=== PATIENT | female | born 1960 | race Caucasian/White ===

== ENCOUNTER 2017-08-04 10:40 | Emergency (ER) | payer BC ==
[~2017-08-04] VITALS: Ht 170.2 cm; Wt 83.5 kg
[~2017-08-04 10:40] MED LIST: CYCL-331 PO; FLUO10CA13 PO; GEMF600T3 PO; LEVO50TA5 PO; TRAM50TA PO
[2017-08-04 10:43] VITALS: BP 139/91
--- NOTE | 2017-08-04 11:10 | PHYS DOC ---
Past History Past Medical History: Arthritis, Hypothyroid, Other Past Surgical History: No Surgical History Alcohol Use: None Drug Use: None Adult General Chief Complaint Chief Complaint: BACK PAIN OR INJURY HPI HPI Patient is a 57 year old F who presents with left-sided back pain over the past 2-3 weeks. [place] states that she had an injury all trying to separate her dogs from fighting. Since that time her pain has been localized to the left side of her back. Her pain is worse with movement and palpation and improved with rest. She has no other associated symptoms. She has no other exacerbating or alleviating factors. Review of Systems Review of Systems Constitutional: Denies fever or chills [] Eyes: Denies change in visual acuity, redness, or eye pain [] HENT: Denies nasal congestion or sore throat [] Respiratory: Denies cough or shortness of breath [] Cardiovascular: No additional information not addressed in HPI [] GI: Denies abdominal pain, nausea, vomiting, bloody stools or diarrhea [] : Denies dysuria or hematuria [] Musculoskeletal: Negative except history of present illness Integument: Denies rash or skin lesions [] Neurologic: Denies headache, focal weakness or sensory changes [] Endocrine: Denies polyuria or polydipsia [] All other systems were reviewed and found to be within normal limits, except as documented in this note. Family History Family History No pertinent family medical history reported Current Medications Current Medications Current medications reviewed Allergies Allergies Allergies Coded Allergies Type Severity Reaction Last Updated Verified acetaminophen Allergy Unknown NAUSEA, VOMITING 09/09/14 No hydrocodone Allergy Unknown NAUSEA, VOMITING 09/09/14 No Physical Exam Physical Exam Constitutional: Well developed, well nourished, no acute distress, non-toxic appearance. [] HENT: Normocephalic, atraumatic, bilateral external ears normal, oropharynx moist, no oral exudates, nose normal. [] Eyes: PERRLA, EOMI, conjunctiva normal, no discharge. [] Neck: Normal range of motion, no tenderness, supple, no stridor. [] Cardiovascular:Heart rate regular rhythm, no murmur [] Lungs & Thorax: Bilateral breath sounds clear to auscultation [] Abdomen: Bowel sounds normal, soft, no tenderness, no masses, no pulsatile masses. [] Skin: Warm, dry, no erythema, no rash. [] Back: Left-sided thoracic and lumbar paraspinal muscle spasm Extremities: No tenderness, no cyanosis, no clubbing, ROM intact, no edema. [] Neurologic: Alert and oriented X 3, normal motor function, normal sensory function, no focal deficits noted. [] Psychologic: Affect normal, judgement normal, mood normal. [] Current Patient Data Vital Signs Vital Signs Date Time Temp Pulse Resp B/P (MAP) Pulse Ox O2 Delivery O2 Flow Rate FiO2 08/04/17 10:43 97.9 88 16 96 Room Air EKG EKG [] Radiology/Procedures Radiology/Procedures [] Course & Med Decision Making Course & Med Decision Making Pertinent Labs and Imaging studies reviewed. (See chart for details) [] Dragon Disclaimer Dragon Disclaimer This electronic medical record was generated, in whole or in part, using a voice recognition dictation system. Departure Departure: Impression: Primary Impression: Muscle spasm of back Disposition: HOME, SELF-CARE Condition: STABLE Referrals: LOREN SORIA (PCP) Patient Instructions: Muscle Strain Additional Instructions: Hyacinth was seen in the ED for back pain. No emergency medical condition was found on history and physical exam. Her symptoms are consistent with a muscle spasm. She was advised to stretch and strength. She was advised to consider message therapy and/or physical therapy. She was also advised to follow up with her primary care doctor as needed for further management. FRANKLIN FRAUSTO MD Aug 04, 2017 11:10
== END 2017-08-04 11:20 | disposition home or self-care (01) ==
LOC: ER 10:40
DX: M62.830 Muscle spasm of back (principal); E03.9 Hypothyroidism, unspecified; M19.90 Unspecified osteoarthritis, unspecified site; Z88.5 Allergy status to narcotic agent; Z88.6 Allergy status to analgesic agent
CPT/HCPCS: 99281

== ENCOUNTER → 2020-04-06 | Outpatient (CLI) | payer BC ==
[~2020-04-06] MED LIST changes: -GEMF600T3 PO; +GEMF600T8 PO
--- NOTE | 2020-04-06 17:25 | RAD ---
LUMBAR SPINE 2-3V History: Low back pain, radiculopathy Comparison: May 26, 2015 Findings: 3 views of the lumbar spine are submitted. There is facet degenerative change greater inferiorly of the lumbar spine. Lumbar vertebral body stature is overall preserved. There is mild levoscoliosis centered upon the mid to superior lumbar spine. Small calcification in the right upper quadrant of the abdomen is of uncertain AP location. There are small left renal calculi, also questionably of the superior right kidney. There is mild degenerative disc disease greatest L3-4 and L1-L2. There is multilevel mild spondylosis greatest L1-L2 through L3-4. Impression: 1. There is multilevel mild degenerative disc disease and spondylosis greatest of mid to superior lumbar levels. There is facet degenerative change greater inferiorly of the lumbar spine. There is mild lumbar levoscoliosis. 2. Small calcification in the right upper quadrant of the abdomen is of uncertain AP location. There are small left renal calculi, also possibly of the superior right kidney. Electronically signed by: Cornelius Becerril MD (04/06/2020 5:22 PM) [id number]
== END | disposition home or self-care (01) ==
LOC: DXRAD 16:33
PROVIDERS: ATTEND Chiropractor Radiology
DX: M47.26 Other spondylosis with radiculopathy, lumbar region (principal); M51.36 Other intervertebral disc degeneration, lumbar region; M41.86 Other forms of scoliosis, lumbar region; N20.0 Calculus of kidney
CPT/HCPCS: 72100

== ENCOUNTER 2020-07-07 10:08 | Inpatient (IN) | payer BC ==
[~2020-07-07] VITALS: Ht 170.2 cm; Wt 90.3 kg
[2020-07-07] MEDS ORDERED: ACETAMINOPHEN 325 MG TABLET PO ONE ×2 (10:31→11:00)
--- NOTE | 2020-07-07 10:36 | PHYS DOC ---
Past History Past Medical History: Arthritis, Hypothyroid, Other Past Surgical History: No Surgical History Alcohol Use: None Drug Use: None Adult General Chief Complaint Chief Complaint: NAUSEA/VOMITING/DIARRHEA HPI HPI Patient is a 60-year-old female who presents with known COVID-19 infection. She was diagnosed with this 5 days ago. Symptom onset was 7 days ago. She comes here with continued fever, full body aches, feelings of palpitations, and what p rompted her visit today was nausea and x3 episodes of nonbloody nonbilious emesis. She lives at home with her who has also been self quarantining given her recent diagnosis, he is currently asymptomatic. Patient has been taking ibuprofen and/or Tylenol intermittently for aches and pains, she admits to taking x1 left over [place] 5 for severe body aches 3 days ago. Reports she took x1 Excedrin 2.5 hours prior to arrival. Review of Systems Review of Systems Fourteen body systems of review of systems have been reviewed. See HPI for pertinent positives and negative responses, other clarke all other systems are negative, non-pertinent or non-contributory Current Medications Current Medications Current Medications Medications (Trade) Dose Ordered Sig/Patricia Start Time Stop Time Status Last Admin Dose Admin Acetaminophen (Tylenol) 325 mg STK-MED ONCE 07/07/20 10:31 07/07/20 10:32 DC Allergies Allergies Allergies Coded Allergies Type Severity Reaction Last Updated Verified acetaminophen Allergy Unknown NAUSEA, VOMITING 09/09/14 No hydrocodone Allergy Unknown NAUSEA, VOMITING 09/09/14 No Physical Exam Physical Exam Constitutional: Well developed, well nourished, no acute distress, appears ill HENT: Normocephalic, atraumatic, bilateral external ears normal, oropharynx moist, post-nasal drip present, no oral exudates, nose normal. [] Eyes: PERRLA, EOMI, conjunctiva normal, no discharge. [] Neck: Normal range of motion, no tenderness, supple, no stridor. [] Cardiovascular:Heart rate regular rhythm, no murmur [] Lungs & Thorax: bilateral rhonchi and crackles, no obvious resp distress but increased work of breathing with accessory muscle use noted Abdomen: Bowel sounds normal, soft, no tenderness, no masses, no pulsatile masses. [] Skin: Warm, diaphoretic, no erythema, no rash. [] Back: No tenderness, no CVA tenderness. [] Extremities: No tenderness, no cyanosis, no clubbing, ROM intact, no edema. [] Neurologic: Alert and oriented X 3, normal motor function, normal sensory function, no focal deficits noted. [] Psychologic: Affect normal, judgement normal, anxious mood Current Patient Data Vital Signs Vital Signs Date Time Temp Pulse Resp B/P (MAP) Pulse Ox O2 Delivery O2 Flow Rate FiO2 07/07/20 20:00 Room Air 07/07/20 19:18 97.1 82 23 132/78 (96) 95 07/07/20 14:55 2.0 Lab Results Laboratory Tests Test 07/07/20 10:35 White Blood Count 3.5 x10^3/uL (4.0-11.0) Red Blood Count 4.30 x10^6/uL (3.50-5.40) Hemoglobin 12.9 g/dL (12.0-15.5) Hematocrit 39.0 % (36.0-47.0) Mean Corpuscular Volume 91 fL (79-100) Mean Corpuscular Hemoglobin 30 pg (25-35) Mean Corpuscular Hemoglobin Concent 33 g/dL (31-37) Red Cell Distribution Width 13.1 % (11.5-14.5) Platelet Count 155 x10^3/uL (140-400) Neutrophils (%) (Auto) 74 % (31-73) Lymphocytes (%) (Auto) 19 % (24-48) Monocytes (%) (Auto) 6 % (0-9) Eosinophils (%) (Auto) 0 % (0-3) Basophils (%) (Auto) 0 % (0-3) Neutrophils # (Auto) 2.6 x10^3uL (1.8-7.7) Lymphocytes # (Auto) 0.7 x10^3/uL (1.0-4.8) Monocytes # (Auto) 0.2 x10^3/uL (0.0-1.1) Eosinophils # (Auto) 0.0 x10^3/uL (0.0-0.7) Basophils # (Auto) 0.0 x10^3/uL (0.0-0.2) Prothrombin Time 10.0 SEC (9.4-11.4) Prothromb Time International Ratio 1.0 (0.9-1.1) Activated Partial Thromboplast Time 31 SEC (23-33) Sodium Level 134 mmol/L (136-145) Potassium Level 3.9 mmol/L (3.5-5.1) Chloride Level 100 mmol/L (98-107) Carbon Dioxide Level 24 mmol/L (21-32) Anion Gap 10 (6-14) Blood Urea Nitrogen 13 mg/dL (7-20) Creatinine 0.9 mg/dL (0.6-1.0) Estimated GFR (Cockcroft-Gault) 64.1 BUN/Creatinine Ratio 14 (6-20) Glucose Level 122 mg/dL (70-99) Lactic Acid Level 1.0 mmol/L (0.4-2.0) Calcium Level 8.3 mg/dL (8.5-10.1) Ferritin 340 ng/mL (8-252) Total Bilirubin 0.3 mg/dL (0.2-1.0) Aspartate Amino Transf (AST/SGOT) 39 U/L (15-37) Alanine Aminotransferase (ALT/SGPT) 44 U/L (14-59) Alkaline Phosphatase 110 U/L (46-116) Lactate Dehydrogenase 374 U/L (81-234) Troponin I Quantitative < 0.017 ng/mL (0-0.055) C-Reactive Protein 75.8 mg/L (0-3.3) Total Protein 7.4 g/dL (6.4-8.2) Albumin 3.2 g/dL (3.4-5.0) Albumin/Globulin Ratio 0.8 (1.0-1.7) Procalcitonin < 0.10 ng/mL (0.00-0.10) EKG EKG EKG ordered and interpreted by myself at 1058 hrs. as sinus rhythm at 95 bpm, unremarkable intervals, no axis deviation, no STEMI Radiology/Procedures Radiology/Procedures PROCEDURE: CHEST AP ONLY Single view of the chest. 07/07/2020 10:32 AM Indication: Reason: COVID +, cough / Spl. Instructions: / History: Comparison: None Findings: Patchy infiltrates in the left midlung and right lung base. There is no pneumothorax or effusion. Heart size is top normal. No acute osseous changes are identified. IMPRESSION: Left midlung and right basilar infiltrates. Electronically signed by: Ronnell Orellana MD (07/07/2020 10:55 AM) [id number] Heart Score HEART Score for Chest Pain: HEART Score for Chest Pain Response (Comments) Value History Slighlty/Non-Suspicious 0 ECG Normal 0 Age >45 - < 65 1 Risk Factors 1 or 2 Risk Factors 1 Troponin < Normal Limit 0 Total 2 Risk Factors: Risk Factors: DM, Current or recent (<one month) smoker, HTN, HLP, family history of CAD, obesity. Risk Scores: Risk Factors: DM, Current or recent (<one month) smoker, HTN, HLP, family history of CAD, obesity. Course & Med Decision Making Course & Med Decision Making Pertinent Labs and Imaging studies reviewed. (See chart for details) Discussed known diagnosis of COVID-19 likely causing presenting infiltrates on CXR and hypoxia requiring supplemental O2 Intervention provided while in ED wasn't sufficient enough to improve patient's condition enough to be discharged home safely. I called Dr. Aguilar and case discussed, he agreed to admission for further medical care I updated patient on plan of care and she was amenable, all questions and concerns addressed prior to ED departure Dragon Disclaimer Dragon Disclaimer This electronic medical record was generated, in whole or in part, using a voice recognition dictation system. Departure Departure: Impression: Primary Impression: COVID-19 Additional Impressions: Pneumonia Acute respiratory distress Disposition: 09 ADMITTED INPT THIS HOSP Admitting Physician: Collin Aguilar Condition: STABLE Referrals: LOREN SORIA (PCP) Problem Qualifiers SHEYLA RAZA DO Jul 07, 2020 10:36
[2020-07-07] MEDS ORDERED: ONDANSETRON PF 4 MG/2 ML VIAL. ONE (10:41)
[2020-07-07] MEDS ORDERED: IV NORMAL SALINE 1,000ML 1,000 ML IV ONE (10:45)
--- NOTE | 2020-07-07 10:59 | RAD ---
Single view of the chest. 07/07/2020 10:32 AM Indication: Reason: COVID +, cough / Spl. Instructions: / History: Comparison: None Findings: Patchy infiltrates in the left midlung and right lung base. There is no pneumothorax or effusion. Heart size is top normal. No acute osseous changes are identified. IMPRESSION: Left midlung and right basilar infiltrates. Electronically signed by: Ronnell Orellana MD (07/07/2020 10:55 AM) [id number]
[2020-07-07] MEDS ORDERED: ONDANSETRON PF 4 MG/2 ML VIAL. IM ONE (11:00)
[2020-07-07 11:13] LABS: BASO % 0 % (0-3); EOS % 0 % (0-3); HEMOGLOBIN 12.9 g/dL (12.0-15.5); LYMPH # 0.7 x10^3/uL (1.0-4.8); LYMPH % 19 % (24-48); MEAN CORPUSCULAR HEMOGLOBIN 30 pg (25-35); MEAN CORPUSCULAR HGB CONC 33 g/dL (31-37); MEAN CORPUSCULAR VOLUME 91 fL (79-100); MONO # 0.2 x10^3/uL (0.0-1.1); MONO % 6 % (0-9); NEUT # 2.6 x10^3uL (1.8-7.7); NEUT % 74 % (31-73); PLATELET COUNT 155 x10^3/uL (140-400); RED CELL DISTRIBUTION WIDTH 13.1 % (11.5-14.5); WHITE BLOOD COUNT 3.5 x10^3/uL (4.0-11.0)
[2020-07-07] MEDS ORDERED: ONDANSETRON PF 4 MG/2 ML VIAL. IV ONE (11:15)
[2020-07-07 11:35] LABS: CALCIUM 8.3 mg/dL (8.5-10.1); CREATININE 0.9 mg/dL (0.6-1.0); GFR 64.1; POTASSIUM 3.9 mmol/L (3.5-5.1)
[2020-07-07 11:39] LABS: ALBUMIN 3.2 g/dL (3.4-5.0); ALBUMIN/GLOBULIN RATIO 0.8 (1.0-1.7); C REACTIVE PROTEIN 75.8 mg/L (0-3.3); TOTAL BILIRUBIN 0.3 mg/dL (0.2-1.0); TOTAL PROTEIN 7.4 g/dL (6.4-8.2)
[2020-07-07] MEDS ORDERED: IV NORMAL SALINE 250ML 250 ML ONE (12:16)
[2020-07-07] MEDS ORDERED: AZITHROMYCIN 500 MG VIAL. IV ONE (12:17)
[2020-07-07] MEDS ORDERED: IV NORMAL SALINE 100ML 100 ML ONE (12:17)
[2020-07-07] MEDS ORDERED: DEXAMETHASONE 4 MG TABLET PO ONE (12:30)
[2020-07-07] MEDS ORDERED: AZITHROMYCIN 500 MG in IV NORMAL SALINE 250ML 250 ML IV ONE (13:00)
--- NOTE | 2020-07-07 14:24 | HP ---
ADMIT DATE: 07/07/2020 ATTENDING PHYSICIAN: Dr. Moore. CHIEF COMPLAINT: Weakness and myalgias. HISTORY OF PRESENT ILLNESS: The patient is a 60-year-old female diagnosed with coronavirus infection 5 days ago. Symptom onset was 7 days ago. She has had continuing low-grade fever, full body aches, feelings of palpitation, nausea, 3 episodes of nonbloody, nonbilious emesis. She lives at home with her who has been self-quarantining. She took intermittent ibuprofen, Tylenol, still quite symptomatic. Chest x-ray today showed patchy linear infiltrates in the right lower lobe and the left lingular region. Her saturation is adequate. She is hemodynamically stable currently. She appears mildly dehydrated. She is admitted then with symptomatic treatment of COVID-related pneumonia and myalgias. PAST MEDICAL HISTORY: Significant for degenerative arthritis, hypothyroidism and chronic pain syndrome. CURRENT MEDICATIONS: Include Flexeril, fluoxetine, Lopid, Synthroid, Neurontin, and Ultram. ALLERGIES: She has allergies to HYDROCODONE, exact reactions unclear. SOCIAL HISTORY: She is a nonsmoker, nondrinker. FAMILY HISTORY: Father of unspecified causes because the biologic father was unknown to her. Mom was 84, she of Alzheimer's dementia. REVIEW OF SYSTEMS: Significant for the myalgias, low-grade fevers, nausea, not feeling well, achy, generalized weakness. No cough. All other systems reviewed and turned to be negative. PHYSICAL EXAMINATION: GENERAL: When I saw her, this is a pleasant female. INITIAL VITAL SIGNS: Showed a blood pressure of 120/72, pulse is 81 and regular, temperature 98.3 degrees Fahrenheit, oxygen saturation 93% on 1 liter nasal cannula. HEENT: Head is without trauma. Pupils are reactive. Sclerae nonicteric. Oropharynx clear. NECK: Supple, no bruits. LUNGS: Fairly good breath sounds with minimum rhonchi. CARDIOVASCULAR: Showed regular heart tones. No gallops. ABDOMEN: Soft, scaphoid, nontender. EXTREMITIES: Showed no cyanosis or edema. NEUROLOGIC: Focally intact. Speech is fluent. SKIN: Warm and dry. PERTINENT LABORATORY STUDIES: Hemoglobin 12.9 g/dL, white count 3500. Electrolytes within normal range. Nonfasting blood sugar 122, creatinine 0.9. Lactic acid was 1.0. Troponin was normal. Chest x-ray showed left mid lung and right basilar infiltrates. ASSESSMENT: 1. COVID-19 coronavirus pneumonia bilaterally. 2. Myalgias. 3. Mild dehydration. 4. History of chronic pain syndrome. PLAN: 1. Admit to the inpatient unit. 2. IV hydration. 3. Pepcid. 4. Empiric Lovenox. 5. Empiric zinc. 6. Empiric Decadron. 7. Pain and nausea relief. SILVIA MOORE MD DR: RAMOS/sophie JOB#: [id number] / [id number]
[2020-07-07 19:18] VITALS: BP 132/78
[2020-07-07] MEDS ORDERED: OMEP40CA45 PO (19:58)
[2020-07-07] MEDS ORDERED: IBUP800T19 PO (19:58)
[2020-07-07] MEDS ORDERED: GABA600T7 PO (19:58)
[2020-07-07] MEDS ORDERED: CETI10TA16 PO (19:58)
[2020-07-07] MEDS ORDERED: LEVO88TA4 PO (19:58)
[2020-07-07] MEDS ORDERED: ACET500T68 PO (19:58)
[2020-07-07] MEDS ORDERED: MONT10TA80 PO (19:58)
[2020-07-07] MEDS ORDERED: DULO20CA50 PO (19:58)
[2020-07-07] MEDS ORDERED: MELA3TAB4 PO (19:58)
[2020-07-07] MEDS ORDERED: LEVO100T5 PO (19:58)
[2020-07-07] MEDS: IV NORMAL SALINE 1,000ML 1,000 ML IV SCH (20:57)
[2020-07-07] MEDS: ENOXAPARIN 40 MG/0.4 ML SYRINGE. SQ SCH (20:57)
[2020-07-07 23:00] VITALS: BP 117/64
[2020-07-08] MEDS: ONDANSETRON PF 4 MG/2 ML VIAL. IVP PRN (03:38)
[2020-07-08] MEDS: ACETAMINOPHEN 500 MG TABLET PO PRN ×3 (03:39→19:21)
[2020-07-08] MEDS: IV NORMAL SALINE 1,000ML 1,000 ML IV SCH ×2 (06:38→15:15)
[2020-07-08] MEDS: FAMOTIDINE 20 MG/2 ML VIAL IVP SCH (06:43)
[2020-07-08 07:00] VITALS: BP 124/72
[2020-07-08] MEDS: ZINC SULFATE 220 MG CAPSULE. PO SCH (08:03)
[2020-07-08] MEDS: DEXAMETHASONE 4 MG TABLET PO SCH (08:03)
[2020-07-08 11:00] VITALS: BP 132/80
[2020-07-08] MEDS ORDERED: CALCIUM CARBONATE 500 MG TAB.CHEW PO PRN (18:45)
--- NOTE | 2020-07-08 19:45 | EKG ---
[address] [address] Test Date: 2020-07-07 Test Time: 10:53:57 Pat Name: SURYA CARTY Department: Room: [place] [address] Gender: F Resident Services Director: : [id number] Requested By: SHEYLA RAZA Order Number: [id number] Reading MD: Rajinder Chou Measurements Intervals [place] Rate: 95 P: 56 MT: 164 QRS: 39 QRSD: 68 T: 68 QT: 348 QTc: 441 Interpretive Statements SINUS RHYTHM NORMAL ECG RI6.02 No previous ECG available for comparison Electronically Signed On 07-09-2020 15:44:11 SECURITY MANAGEMENT SPECIALIST by Rajinder Chou
[2020-07-08 20:00] VITALS: BP 144/81
[2020-07-08] MEDS ORDERED: MELATONIN 3 MG TABLET PO PRN ×2 (20:00→21:20)
[2020-07-08] MEDS: ENOXAPARIN 40 MG/0.4 ML SYRINGE. SQ SCH (21:36)
[2020-07-09] MEDS: IV NORMAL SALINE 1,000ML 1,000 ML IV SCH ×3 (01:15→21:15)
[2020-07-09 06:00] VITALS: BP 133/78
[2020-07-09] MEDS: FAMOTIDINE 20 MG/2 ML VIAL IVP SCH (06:19)
--- NOTE | 2020-07-09 07:28 | PN ---
DATE: 07/08/2020 ATTENDING PHYSICIAN: Dr. Moore. SUBJECTIVE: Feeling better, not as tired. She still has a dry nonproductive cough. Oxygen saturation 91% on room air. OBJECTIVE FINDINGS: VITAL SIGNS: She is afebrile, temperature 98.8 degrees Fahrenheit, blood pressure 117/64, pulse 87 and regular, oxygen saturation 91% on room air. HEENT: Head is without trauma. Pupils are reactive. Sclerae nonicteric. Oropharynx clear. NECK: Supple, no bruits. LUNGS: Good breath sounds. CARDIOVASCULAR: Showed regular heart tones. No gallops. Peripheral pulses are palpable and full. ABDOMEN: Soft, scaphoid, nontender, no organomegaly. Bowel sounds are hypoactive. EXTREMITIES: Showed no cyanosis. NEUROLOGIC: Focally intact. Speech is fluent. SKIN: Warm and dry. ASSESSMENT: 1. A 60-year-old female with acute COVID [place] virus pneumonia. 2. Myalgias improved. 3. Dehydration, rehydrated. 4. History of chronic pain syndrome 5. Hypothyroidism, on replacement. PLAN: 1. We can discontinue the IV hydration. She is eating and drinking well. 2. Continue empiric Lovenox. 3. Pepcid, Zinc and Decadron. 4. Pain and nausea, controlled. 5. Monitor oxygen saturation. If she remains stable, she can be discharged to quarantine at home. SILVIA MOORE MD DR: RAMOS/sophie JOB#: [id number] / [id number]
[2020-07-09 08:39] VITALS: BP 126/71
[2020-07-09] MEDS: ZINC SULFATE 220 MG CAPSULE. PO SCH (08:39)
[2020-07-09] MEDS: DEXAMETHASONE 4 MG TABLET PO SCH (08:40)
[2020-07-09] MEDS: ACETAMINOPHEN 500 MG TABLET PO PRN ×2 (08:40→14:32)
[2020-07-09] MEDS: ONDANSETRON PF 4 MG/2 ML VIAL. IVP PRN (08:40)
[2020-07-09 11:07] VITALS: BP 122/70
--- NOTE | 2020-07-09 13:04 | RAD ---
PORTABLE CHEST 1V 07/09/2020 10:39 AM INDICATION: Shortness of air COMPARISON: 07/07/2020 TECHNIQUE: Portable frontal view of the chest is provided. FINDINGS: The cardiomediastinal silhouette is within normal limits. There is persistent interstitial and alveolar airspace disease in the left upper lobe. There are no significant pleural effusions. There is no pulmonary vascular congestion. No pneumothorax. No suspicious osseous abnormality. IMPRESSION: There is persistent patchy interstitial and alveolar spaces in the left upper lobe which may represent pneumonia in appropriate setting. Recommend follow-up to resolution. Electronically signed by: Nimisha Sofia MD (07/09/2020 1:01 PM) KONRAD
[2020-07-09 14:54] VITALS: BP 114/76
[2020-07-09] MEDS: IPRATROPIUM/ALBUTEROL 20/100mcg/INH INHALER. INH SCH ×2 (16:00→20:45)
[2020-07-09 20:06] VITALS: BP 110/72
[2020-07-09] MEDS: ENOXAPARIN 40 MG/0.4 ML SYRINGE. SQ SCH (20:45)
[2020-07-09 22:31] VITALS: BP 120/68
--- NOTE | 2020-07-10 02:41 | PN ---
DATE: 07/09/2020 ATTENDING PHYSICIAN: Dr. Moore. SUBJECTIVE: The patient is still weak. She still has low-grade fevers. Cough is better. She is clammy. No nausea or vomiting. OBJECTIVE FINDINGS: VITAL SIGNS: Temperature 100.1 degrees Fahrenheit, blood pressure 126/71, pulse is 95, oxygen saturation 93% on 2 liters nasal cannula. HEENT: Head is without trauma. Pupils are reactive. Sclerae nonicteric. Oropharynx is clear. NECK: Supple. LUNGS: Minimal rhonchi at bases. CARDIOVASCULAR: Showed regular heart tones. No gallops. ABDOMEN: Soft. EXTREMITIES: Without edema. SKIN: A little bit clammy. LABORATORY DATA: Followup chest x-ray has been ordered. ASSESSMENT: 1. A 60-year-old female with COVID-19 virus infection. 2. Bibasilar infiltrates. 3. Gastroenteritis, resolved. 4. Dehydration, rehydrated. 5. Chronic pain syndrome. PLAN: 1. Follow up chest x-ray. 2. Continue current therapy. 3. Diet as tolerated. 4. Supplemental oxygen. 5. We will an inhaler, metered dose inhaler. SILVIA MOORE MD DR: RAMOS/sophie JOB#: [id number] / [id number]
[2020-07-10] MEDS: ACETAMINOPHEN 500 MG TABLET PO PRN ×2 (05:41→18:29)
[2020-07-10] MEDS: FAMOTIDINE 20 MG/2 ML VIAL IVP SCH ×2 (05:44→08:11)
[2020-07-10 06:48] VITALS: BP 123/71
[2020-07-10 08:00] VITALS: BP 132/79
[2020-07-10] MEDS: IPRATROPIUM/ALBUTEROL 20/100mcg/INH INHALER. INH SCH ×4 (08:00→20:00)
[2020-07-10] MEDS: ZINC SULFATE 220 MG CAPSULE. PO SCH (08:10)
[2020-07-10] MEDS: DEXAMETHASONE 4 MG TABLET PO SCH (08:10)
[2020-07-10] MEDS: ENOXAPARIN 40 MG/0.4 ML SYRINGE. SQ SCH (08:13)
[2020-07-10] MEDS ORDERED: DULO30CA2 PO (10:31)
[2020-07-10] MEDS: DULoxetine HCL 30 MG CAPSULE.DR PO SCH (12:08)
[2020-07-10 12:28] VITALS: BP 126/85
[2020-07-10 16:08] VITALS: BP 132/80
[2020-07-10 20:00] VITALS: BP 134/81
--- NOTE | 2020-07-10 23:24 | PN ---
DATE: 07/10/2020 ATTENDING PHYSICIAN: Dr. Moore. SUBJECTIVE: The patient is doing a little better. Her fevers are resolved. Cough is improved. She is not nearly as tired. She feels depressed that she is stuck in the hospital. She has been on Cymbalta. We restarted this. OBJECTIVE FINDINGS: VITAL SIGNS: Oxygen saturations are 93% on 2 liters nasal cannula, blood pressure 123/70, pulse 80 and regular. She is afebrile. HEENT: Head is without trauma. Pupils are reactive. Sclerae nonicteric. Oropharynx clear. NECK: Supple, no bruits identified. LUNGS: Minimal rhonchi at bases. CARDIOVASCULAR: Showed regular heart tones. No gallops. Peripheral pulses are palpable and full. ABDOMEN: Soft, nontender, no organomegaly. EXTREMITIES: Without edema. NEUROLOGIC: Focally intact. Speech is fluent. SKIN: Warm and dry. ASSESSMENT: 1. A 60-year-old female with COVID-19 infection. 2. Bilateral viral pneumonia. 3. Gastroenteritis, resolved. 4. Dehydration, rehydrated. 5. Chronic pain syndrome. PLAN: 1. We are trying to wean down her supplemental oxygen to room air. 2. Continue current regimen. 3. Tentative discharge planning for tomorrow. 4. We have added a spacer for her metered dose inhaler. SILVIA MOORE MD DR: RAMOS/sophie JOB#: [id number] / [id number]
[2020-07-11 05:51] VITALS: BP 131/83
[2020-07-11] MEDS: IPRATROPIUM/ALBUTEROL 20/100mcg/INH INHALER. INH SCH (08:00)
[2020-07-11] MEDS: DULoxetine HCL 30 MG CAPSULE.DR PO SCH (08:16)
[2020-07-11] MEDS: DEXAMETHASONE 4 MG TABLET PO SCH (08:16)
[2020-07-11] MEDS: ZINC SULFATE 220 MG CAPSULE. PO SCH (08:17)
[2020-07-11] MEDS: FAMOTIDINE 20 MG/2 ML VIAL IVP SCH (08:33)
[2020-07-11 10:55] VITALS: BP 124/65
--- NOTE | 2020-07-11 11:52 | DS ---
DATE OF DISCHARGE: ATTENDING PHYSICIAN: Dr. Moore. FINAL DISCHARGE DIAGNOSES: 1. COVID-19 coronavirus pneumonia. 2. Myalgias, improved. 3. Dehydration, rehydrated. 4. Chronic pain syndrome. 5. Hypothyroidism, on replacement. HISTORY AND PHYSICAL: This pleasant 60-year-old female is admitted to the ED with flu-like symptoms, body aches, palpitations, nausea and 3 episodes of emesis. She was diagnosed positive for coronavirus. She had an infiltrate in the left lingular region. PHYSICAL EXAMINATION: Please see the dictated note. PERTINENT LABORATORY AND X-RAY STUDIES: Chest x-ray on admission showed infiltrates consistent with coronavirus. Repeat chest x-ray on the third hospital day showed persistent patchy interstitial alveolar space in the left upper lobe, no new infiltrates identified. Her hemoglobin was 12.9 g/dL with a white count of 3500. Electrolytes were within normal range. Potassium 3.9 mEq, nonfasting blood sugar 122, serum ferritin level was drawn the ED, this is elevated due to the fact that ferritin is an acute phase reactant. COURSE IN THE HOSPITAL: The patient was admitted initially to the ICU. She was placed on supplemental oxygen. We did start her on empiric Decadron, Pepcid, Lovenox, and zinc, she did fairly well. Diet was advanced and she improved by the fifth hospital day, she was up and ambulating. She went to the shower independently. Her room air saturations were adequate at 94% on room air. She was afebrile and she was ready for discharge. Her lungs sounded clear and she had no other symptoms. At this time, I recommend 5 more days of Decadron 6 mg p.o. daily, Tussionex 5 mL q.12 hours p.r.n. cough. Continuation of her home meds including her Synthroid, cetirizine, Cymbalta, Neurontin, melatonin, Singulair, and omeprazole dose is unchanged. She will follow up with her PCP. She understands she has tested positive for COVID. She should be under quarantine for other family members. She was discharged from our hospital in stable condition with explicit instructions and followup care. SILVIA MOORE MD DR: RAMOS/sophie JOB#: [id number] / [id number]
== END 2020-07-11 13:00 | disposition home or self-care (01) | DRG 177 ==
LOC: ER 10:08 → ICU 13:30 → 1 SOUTH 07-10 15:29
PROVIDERS: ADMIT Hospitalist; ATTEND Hospitalist
DX: U07.1 COVID-19 (principal); J12.89 Other viral pneumonia; E03.9 Hypothyroidism, unspecified; E86.0 Dehydration; G89.4 Chronic pain syndrome; R06.03 Acute respiratory distress; K52.9 Noninfective gastroenteritis and colitis, unspecified; Z82.0 Family history of epilepsy and other diseases of the nervous system; M19.90 Unspecified osteoarthritis, unspecified site; Z88.8 Allergy status to other drugs, medicaments and biological substances
CPT/HCPCS: 36415; 71045; 80053; 82728; 83605; 83615; 84145; 84484; 85025; 85610; 85730; 86140; 87040; 93005; 96361; 96365; 96375; J0456; J0696; J1650; J2405; J3490; J7050; J8540; 99285-25; J7030